=== PATIENT | male | born 1950 | race Caucasian/White ===

== ENCOUNTER 2019-11-20 05:44 | Day surgery (SDC) | payer OTHER ==
[~2019-11-20] VITALS: Ht 188 cm; Wt 103.2 kg
[~2019-11-20 05:44] MED LIST: SODIUM CHLORIDE 0.9% 1,000 ML ONE
[2019-11-20] MEDS ORDERED: LOSA-88 PO (06:28)
[2019-11-20] MEDS ORDERED: FERR-89 PO (06:28)
[2019-11-20] MEDS ORDERED: NAPR220T57 PO (06:28)
[2019-11-20] MEDS ORDERED: NAPR-1025 PO (06:28)
[2019-11-20] MEDS ORDERED: MELO-107 PO (06:28)
[2019-11-20] MEDS ORDERED: DOXY100C PO (06:28)
[2019-11-20] MEDS ORDERED: FLUT1BLS10 PO (06:28)
[2019-11-20] MEDS ORDERED: BIOT5000 PO (06:28)
[2019-11-20] MEDS ORDERED: D-ME473S53 PO (06:28)
[2019-11-20] MEDS ORDERED: MONT10TA21 PO (06:28)
[2019-11-20] MEDS ORDERED: ALBU8.5H8 IH (06:28)
[2019-11-20] MEDS ORDERED: PANT40TA25 PO (06:28)
[2019-11-20] MEDS ORDERED: RANI150T7 PO (06:28)
[2019-11-20] MEDS ORDERED: HYDR-1475 PO (06:28)
[2019-11-20] MEDS ORDERED: SODIUM CHLORIDE 0.9% 1,000 ML IV ONE (07:00)
[2019-11-20] MEDS ORDERED: FentaNYL CITRATE-PF 100 MCG/2 ML VIAL ONE (07:31)
[2019-11-20] MEDS ORDERED: MIDAZOLAM HCL 2 MG/2 ML VIAL ONE (07:31)
[2019-11-20] MEDS ORDERED: MethylPREDNISolone SOD SUCC 125 MG/2 ML VIAL IVP ONE (08:30)
[2019-11-20] MEDS ORDERED: MethylPREDNISolone SOD SUCC 125 MG/2 ML VIAL ONE (08:38)
[2019-11-20] MEDS ORDERED: LIDOCAINE 2% 30 ML JELLY ONE (15:53)
[2019-11-20] MEDS ORDERED: LIDOCAINE 4% 50 ML SOLUTION ONE (15:53)
[2019-11-20] MEDS ORDERED: EPINEPHrine 1:1,000 [1 MG/ML] AMP ONE (15:53)
[2019-11-20] MEDS ORDERED: BENZOCAINE 20% 50 MCG/SPRAY 57 GM ONE (15:53)
[2019-11-20] MEDS ORDERED: OXYGEN THERAPY IH SCH (20:00)
== END 2019-11-20 09:45 | disposition home or self-care (01) ==
LOC: SURGERY 05:44
PROVIDERS: ATTEND Internal Medicine Critical Care Medicine
DX: R05 Cough (principal); R91.1 Solitary pulmonary nodule; J47.9 Bronchiectasis, uncomplicated; J34.89 Other specified disorders of nose and nasal sinuses; J98.8 Other specified respiratory disorders; J38.4 Edema of larynx; B37.0 Candidal stomatitis; Z79.899 Other long term (current) drug therapy; R19.00 Intra-abdominal and pelvic swelling, mass and lump, unspecified site
CPT/HCPCS: 31623; 31624; 71045; 87015; 87070; 87101; 87205; 87206; 87220; 88184; 88185; 93005; J0171; J2250; J2930; J3010; J7030; 88108; 88312

== ENCOUNTER 2020-12-06 09:18 | Day surgery (SDC) | payer OTHER ==
[2020-12-05 10:06] LABS: COVID AG,FIA SOURCE NASOPHARYNGEAL
[2020-12-05 10:24] LABS: BASOPHILS % (AUTO) 0.5 % (0.0-2.0); EOSINOPHILS % (AUTO) 2.9 % (1.0-6.0); HEMOGLOBIN 12.3 g/dL (13.5-17.5); LYMPHOCYTES # (AUTO) 0.6 K/uL (1.0-4.8); LYMPHOCYTES % (AUTO) 13.5 % (22.0-44.0); MEAN CORPUSCULAR HEMOGLOBIN 25.8 pg (26.0-34.0); MEAN CORPUSCULAR HGB CONC 31.5 G/dL (31.0-37.0); MEAN CORPUSCULAR VOLUME 82 fL (80-100); MONOCYTES # (AUTO) 0.5 K/uL (0.1-1.0); MONOCYTES % (AUTO) 11.1 % (2.0-9.0); NEUTROPHILS # (AUTO) 3.1 K/uL (1.8-7.7); PLATELET COUNT (AUTO) 241 K/uL (150-450); RED BLOOD CELL COUNT(AUTO) 4.76 MIL/uL (4.50-5.90); RED CELL DISTRIBUTION WIDTH 24.6 % (11.5-14.5)
[2020-12-05 10:29] LABS: CALCIUM, TOTAL 8.9 mg/dL (8.8-10.5); CREATININE 1.42 mg/dL (0.60-1.30); POTASSIUM 4.6 mmol/L (3.5-5.1)
[2020-12-05 10:35] LABS: ALBUMIN 3.8 g/dL (3.4-5.0); BILIRUBIN,TOTAL 0.4 mg/dL (0.1-1.0); TOTAL PROTEIN, SERUM 6.4 g/dL (6.4-8.2)
[2020-12-05 10:40] LABS: INR 1.1 (0.9-1.1); PROTHROMBIN TIME 11.2 SEC (9.4-11.6)
[~2020-12-06] VITALS: Ht 188 cm; Wt 106.4 kg
[~2020-12-06 09:18] MED LIST changes: +ALBU8.5H8 IH; +BIOT5000 PO; +D-ME473S53 PO; +DOXY100C PO; +FERR-89 PO; +FLUT1BLS10 PO; +HYDR25TA2 PO; +LOSA50TA37 PO; +MELO-107 PO; +MONT-35 PO; +NAPR-1025 PO; +NAPR220T57 PO; +PANT-31 PO; +RANI150T7 PO; -SODIUM CHLORIDE 0.9% 1,000 ML ONE
[2020-12-06] MEDS ORDERED: SODIUM CHLORIDE 0.9% 1,000 ML ONE (09:31)
[2020-12-06] MEDS ORDERED: SODIUM CHLORIDE 0.9% 1,000 ML IV ONE (10:00)
[2020-12-06] MEDS ORDERED: AMLO2.5T96 PO (10:18)
[2020-12-06] MEDS ORDERED: CLOP75TA60 PO (10:18)
[2020-12-06] MEDS ORDERED: MAGN200T4 PO (10:18)
[2020-12-06] MEDS ORDERED: TRAM50TA4 PO (10:18)
[2020-12-06] MEDS ORDERED: RANITIDINE PO (10:18)
[2020-12-06] MEDS ORDERED: PANT-31 PO (10:18)
[2020-12-06] MEDS ORDERED: NITR0.4T52 SL (10:18)
[2020-12-06] MEDS ORDERED: ASPI-1450 PO (10:18)
[2020-12-06] MEDS ORDERED: LOSA50TA37 PO (10:18)
[2020-12-06] MEDS ORDERED: FENO48TA20 PO (10:18)
[2020-12-06] MEDS ORDERED: FentaNYL CITRATE PF 100 MCG/2 ML VIAL ONE (10:49)
[2020-12-06] MEDS ORDERED: MIDAZOLAM HCL 2 MG/2 ML VIAL ONE (10:49)
[2020-12-06] MEDS ORDERED: HEPARIN SODIUM 1000 UNITS/NS 1,000 ML ONE (10:50)
[2020-12-06] MEDS ORDERED: SODIUM BICARBONATE 50 MEQ/50 ML VIAL ONE (10:50)
[2020-12-06] MEDS ORDERED: LIDOCAINE/PF 1% 30 ML VIAL ONE (10:50)
[2020-12-06] MEDS ORDERED: IOHEXOL 300 MG/ML 50 ML VIAL ONE (10:51)
[2020-12-06] MEDS ORDERED: HEPARIN SODIUM,PORCINE 1,000 UNITS/ML 10 ML VIAL ONE (10:58)
[2020-12-06] MEDS ORDERED: FERR325T22 PO (11:04)
[2020-12-06] MEDS ORDERED: HYDR25TA PO (11:04)
[2020-12-06] MEDS ORDERED: ASCO500T20 PO (11:04)
[2020-12-06] MEDS ORDERED: FLUT1DIS26 IH (11:04)
[2020-12-06] MEDS ORDERED: FENO145T26 PO (11:04)
[2020-12-06 11:15] VITALS: BP 168/82
[2020-12-06] MEDS ORDERED: IOHEXOL 300 MG/ML 150 ML VIAL IARTER ONE (12:00)
[2020-12-06] MEDS ORDERED: FentaNYL CITRATE PF 100 MCG/2 ML VIAL IVP ONE ×2 (12:00→12:15)
[2020-12-06] MEDS ORDERED: HEPARIN SODIUM 1000 UNITS/NS 1,000 ML IARTER ONE (12:00)
[2020-12-06] MEDS ORDERED: MIDAZOLAM HCL 2 MG/2 ML VIAL IVP ONE ×2 (12:00→12:15)
[2020-12-06] MEDS ORDERED: LIDOCAINE 1% 30 ML/SOD BICARB 8.4% 4 ML SQ ONE (12:00)
[2020-12-06 12:29] VITALS: BP 168/85
== END 2020-12-06 18:30 | disposition home or self-care (01) ==
LOC: CATHLAB 09:18
PROVIDERS: ATTEND Internal Medicine Interventional Cardiology
DX: R07.9 Chest pain, unspecified (principal); I35.0 Nonrheumatic aortic (valve) stenosis; I27.20 Pulmonary hypertension, unspecified; Z87.891 Personal history of nicotine dependence; Z98.890 Other specified postprocedural states; Z88.8 Allergy status to other drugs, medicaments and biological substances; J44.9 Chronic obstructive pulmonary disease, unspecified; E78.00 Pure hypercholesterolemia, unspecified; R06.02 Shortness of breath
CPT/HCPCS: 36415; 80053; 85025; 85610; 85730; 87426; 93005; 93460; 99152; 99153; C9803; J1644 ×2; J2250; J3010; J3490 ×2; J7030; Q9967